=== PATIENT | female | born 1975 | race Caucasian/White ===

== ENCOUNTER → 2018-11-08 09:54 | Day surgery (SDC) | payer BC, OTHER ==
[~2018-11-08 09:54] MED LIST: Buffered Lidocaine 1% SYRIN* 1 ML/SYRINGE INTRADERM ONE; Chloroprocaine 2%* 20 ML VIAL ONE; DiMENhydriNATE IV* 50 MG/ML VIAL IV PUSH PRN; HYDROmorphone INJ1* 1 MG/ML SYRINGE IV PRN; Lactated Ringers 1000 ML Bag* 1,000 ML IV SCH; Midazolam* 1 MG/ML 5 ML VIAL (5 MG) ONE; Naloxone* 0.4 MG/ML 1 ML VIAL IV PRN; Ondansetron INJ* 2 MG/ML VIAL IV PRN; Propofol* 10 MG/ML 20 ML BTL ONE; fentaNYL* 50 MCG/ML 2 ML VIAL (100 MCG VIAL) IV PRN; fentaNYL* 50 MCG/ML 2 ML VIAL (100 MCG VIAL) ONE; oxyCODONE TAB* 5 MG TAB PO PRN
[2018-11-08 10:40] LABS: ABS Basophils 0.1 10^3/ul (0-0.2); ABS Eosinophils 0.1 10^3/ul (0-0.6); ABS Lymphocytes 2.3 10^3/ul (1.0-4.8); ABS Monocytes 0.6 10^3/ul (0-0.8); ABS Nucleated RBC 0 10^3/ul; Eosinophil % 0.8 %; Hematocrit 45 % (35-47); Hemoglobin 15.2 g/dl (12.0-16.0); Mean Corpuscular HGB Conc 34 g/dl (31-36); Mean Corpuscular Hemoglobin 31 pg (27-31); Mean Corpuscular Volume 93 fL (80-97); Mean Platelet Volume 8.4 fL (7.4-10.4); Nucleated Red Blood Cells % 0; Platelet Count 357 10^3/ul (150-450); Red Blood Count 4.87 10^6/ul (4.00-5.40); Red Cell Distribution Width 14 % (10.5-15); White Blood Count 11.1 10^3/ul (3.5-10.8)
[2018-11-08 14:27] VITALS: BP 115/88
--- NOTE | 2018-11-14 23:07 | OP ---
OPERATIVE REPORT: DATE OF OPERATION: 11/08/18 DATE OF : 79 SURGEON: Dr. Ocasio. ANESTHESIA: Spinal. PRE-OP DIAGNOSIS: Missed in early first trimester. POST-OP DIAGNOSIS: Missed in early first trimester. OPERATIVE PROCEDURE: Dilation and evacuation of products of conception using a suction curettage. ESTIMATED BLOOD LOSS: None. SPECIMEN SENT TO PATHOLOGY: Endometrial curettings and products of conception. FLUIDS: She received 1 L of IV crystalloid fluid. OUTPUT: Her urine output was 500 cc of clear urine. FINDINGS: Exam under anesthesia revealed a uterus that sounded to 9 cm and was in anteverted positio n. Moderate amounts of products of conception were noted at the cervical os and the cervix was noted to be 1 cm dilated. External genitalia along with the urethra was within normal limits. DESCRIPTION OF PROCEDURE: The patient was taken to the operating room where she was identified. She was placed on the operating table where a spinal anesthetic was obtained without difficulty. She wa s then placed in the dorsal lithotomy position, prepped and draped in a normal sterile fashion. Atte ntion was then brought onto the patient's perineum, where the bladder was catheterized and emptied of clear urine. A weighted speculum was then inserted into the patient's vagina. The cervix was identi fied. It was then grasped with a single-tooth tenaculum. Products of conception were noted at the ce rvical os which was about 1 cm dilated. The uterus was then sounded and it was noted to be 9 cm in le ngth in an anteverted position. At this point, a 10 mm curved suction curette was introduced through the cervix up to the fundus of the uterus. The suction was then turned on and a suction curettage w as performed until the uterus was deemed emptied. After the suction curettage, a sharp curettage was performed to confirm complete of the uterine cavity. After the sharp curettage, a second avelino lication with suction curettage was performed. There was no tissue or blood removed. At this point, all the instruments were removed from the patient's vagina. Sponge, lap, and needle counts were cor rect x2. The specimen was sent to Pathology and the patient was taken to recovery room area in [facility]. [id number]/[facility] #: [id number]
== END | disposition home or self-care (01) ==
LOC: OR 09:54
PROVIDERS: ATTEND Obstetrics & Gynecology
DX: O02.1 Missed abortion (principal); E03.9 Hypothyroidism, unspecified
CPT/HCPCS: 36415; 62323; 85025; 86850; 86900; 86901; 88305; J2250; J2400; J2704; J3010